=== PATIENT | male | born 1980 | race Caucasian/White ===

== ENCOUNTER → 2021-11-03 13:24 | Outpatient (CLI) | payer SELFPAY, OTHER ==
--- NOTE | 2021-11-03 13:27 | VDLE_ITS ---
Reason For Study: PAIN RIGHT LEFT GSV is normal. CFV is compressible, spontaneous, phasic, CFV is compressible, spontaneous, phasic, competent, and demonstrates normal competent and demonstrates normal augmentation. augmentation. FV is compressible, spontaneous, phasic, competent and demonstrates normal augmentation. POP V is compressible, spontaneous, phasic, competent and demonstrates normal augmentation. RT T/P TRUNK, PTV, and PEROV are DILATED and NONCOMPRESSIBLE. Procedure Exam performed in department. This is a venous duplex using B-mode, color flow and spectral Doppler. A preliminary report was called and/or faxed to [facility]/DR ALYSHA ORDAZ. VL/Venous Duplex US, Unilateral Interpretation Summary Acute deep venous thrombosis right tibioperoneal trunk, posterior tibial, and p eroneal veins. Patent, compressible right great saphenous vein Normal flow patterns left common femoral vein Ordering Physician: Tania Whitten Referring Physician: SYDNIE ORDAZ Performed By: Rhiannon Rodriguez, SHANNAN, RVT
== END ==
PROVIDERS: PCP Family Medicine; Visit Provider Physician Assistant Surgical
DX: M79.662 Pain in left lower leg (principal)
CPT/HCPCS: 93971